=== PATIENT | male | born 1955 | race Caucasian/White ===

== ENCOUNTER 2019-04-15 04:58 | Emergency (ER) | payer BC ==
[2019-04-15 05:23] VITALS: BP 130/93; PULSE 53; RESP 18; TEMP 97; O2SAT 98
[2019-04-15] MEDS ORDERED: LIDOCAINE HCL 2% MPF 10 ML SOL SC ONE (05:37)
[2019-04-15] MEDS ORDERED: LIDOCAINE HCL 1% 50 MG/5 ML SOL INFIL ONE (05:40)
[2019-04-15] MEDS ORDERED: BACITRACIN 500 U/GM OIN TOP ONE (06:54)
== END 2019-04-15 07:30 | disposition home or self-care (01) ==
LOC: ED 04:58
DX: S51.811A Laceration without foreign body of right forearm, initial encounter (principal); W10.8XXA Fall (on) (from) other stairs and steps, initial encounter
CPT/HCPCS: 12004; 99282; 99283; A6232; A6402; A9270-GY